=== PATIENT | female | born 1995 ===

== ENCOUNTER 2025-09-19 10:12 | Outpatient (AMB) | payer MEDICAID, SELFPAY ==
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
[2025-09-19 10:32] VITALS: BP 105/71; PULSE 79; RESP 16; TEMP 36.5; O2SAT 98; BMI 33.6
== END 2025-09-19 11:19 | disposition home or self-care (01) ==
LOC: HODSOBC 10:12
PROVIDERS: Supervising Provider Advanced Practice Midwife; Visit Provider Advanced Practice Midwife
DX: O09.891 Supervision of other high risk pregnancies, first trimester (principal); O99.211 Obesity complicating pregnancy, first trimester; E66.01 Morbid (severe) obesity due to excess calories; Z3A.13 13 weeks gestation of pregnancy; Z88.1 Allergy status to other antibiotic agents
CPT/HCPCS: 99214; G0463

== ENCOUNTER 2025-10-17 10:10 | Outpatient (AMB) | payer MEDICAID, SELFPAY ==
[2025-10-17 10:25] VITALS: BP 112/71; PULSE 88; RESP 16; TEMP 36.4; O2SAT 98; BMI 33.5
--- NOTE | 2025-10-17 10:25 | OBCLNT_ITS ---
Vital Signs 10/17/25 10:25 Height 1.63 m Height Method Stated Weight 89.018 kg Weight Measurement Method Standing Scale BMI 33.5 BP 112/71 Blood Pressure Source Automatic Cuff Blood Pressure Location Left Upper Arm Position Sitting Respiration 16 Pulse 88 Pulse Source Monitor Temp 97.6 F Temp Source Oral Pulse Oximetry (%) 98 Oxygen Delivery Method Room Air Allergies/Home Meds Allergies & Medications Allergies antibiotic Allergy (Uncoded 10/17/25 10:26) Hives Medication Reconciliation prenat.vits,everardo,[id number] 1 tab PO QDAY 04/02/23 [History Confirmed 10/17/25] Immunizations Immunizations Flu Vaccine in the Last 12 Months: Yes Date of most recent flu vaccination: 10/17/25 Flu Vaccine Exclusion Criteria: Already Received Care OB Visit Log OB Flowsheet Initial Weight: Not Recorded Date -?-?-?-?-?-?-?-?-?-?-?-?- EGA Weight BP Alb Glu CTX Pres Fundal ht FHR Mov Dilation Station Effacement Hx Notes Visit Note 09/19/25 -?-?-?-?-?-?-?-?-?-?-?-?- 13w 6d 88.904 kg 105/71 absent unknown 13 156 absent 30-year-old 6 para 4 for OBI. Last period June 14, 2025. Estimated due date March 21, 2026. Denies leaking, bleeding, cramps. Patient denies any second trimester discomforts. OB panel today w ith early 1 hour and hemoglobin A1c. I also did a CMP today. We did NIPT and carrier screen. Continue vitamins. Schedule an ultrasound at [facility] for anatomy scan. And discussed SAB precautions. Patient will return in 4 weeks OB check 10/17/25 -?-?-?-?-?-?-?-?-?-?-?-?- 17w 6d 89.018 kg 112/71 absent unknown 16 156 absent Patient did not do labs. She was away at work. Denies leaking, bleeding, contractions. Light movement NIPT, AFP, A1c, OB panel today patient has MFM appointment the first week in November. Discussed SAB precautions. Return in 4 weeks OB check [facility] Calculator Estimated Delivery Date Method Current WG Current Estimate 03/21/26 LMP (Certain) 17w 6d Notes Visit Date: 09/19/25 Last Updated by: Kathie Amaro CNM Okay30 yo nextg6 more thanp4. lmp 06/14/25. EDC: 03/21/26 Office Procedures OBC Clinic LOC & Office Proc's Nursing/Assessment Patient Status: Established Patient OB Clinic Nursing Assessment: Medication Reconciliation, Update PMH in EMR and Vital Signs OB Clinic Coordination of Care: Complex Care and Chronic Disease 1-5, Consent,records obtained, informed consent, Education Simp Pt/Fam, 1 Ins Authorization, Lab and Imaging orders, Results/Orders obtained and Staff clarify orders Special Needs: Heart tones Established Patient Charge Established Patient Point Assignment: 150 Established Patient Point Charge: EP Level 4 (120-155) Injection/Vaccine Admin SQ Im Injection: Yes Immunizations flu vac ts (6mos up)-PF 45 mcg(15mcg x3)/0.5 mL IM syringe Performing Provider: Kathie Amaro CNM Performing Location: [facility] Administered by: Marisa Osorio MA on 10/17/25 13:19 Dose Route Admin Location Dispensed Lot Number Expiration Date Pack age [facility] [place] [employer] 0.5 mL IM Left Deltoid 0.5 mL [id number] 12/17/24 47913-401-02 [id number] [employer] VIS Given Date VIS Provided VIS Publication Date 10/17/25 Single Vaccine 24 Eligibility Eligibility Date Funding Source Public Non-[facility] Assessment & Plan Diagnosis / Problem List (1) Obesity affecting in second trimester: Status: Acute Qualifiers: Obesity type affecting : severe obesity due to excess calories Qualified Code(s): O99.212 - Obesity complicating , second trimester; E66.01 - Morbid (severe) obesity due to excess calories Plan Keep appointment with MFM the first week and November. OB panel with NIPT, carrier screens, AFP, AMA 1C and today. SAB precautions and return in 4 weeks OB check Additional Plan Follow Up: 4 Weeks (obc)
== END 2025-10-17 10:59 | disposition home or self-care (01) ==
PROVIDERS: Supervising Provider Advanced Practice Midwife; Visit Provider Advanced Practice Midwife
DX: O09.892 Supervision of other high risk pregnancies, second trimester (principal); O99.212 Obesity complicating pregnancy, second trimester; Z3A.17 17 weeks gestation of pregnancy; Z23 Encounter for immunization
CPT/HCPCS: 90471; 90686; 96372; 99214; G0463; J9060

== ENCOUNTER 2025-11-15 10:29 | Outpatient (AMB) | payer MEDICAID, SELFPAY ==
[2025-11-15 10:59] VITALS: BP 106/73; PULSE 93; RESP 18; TEMP 36.6; O2SAT 98; BMI 33.0
--- NOTE | 2025-11-15 10:59 | OBCLNT_ITS ---
Vital Signs 11/15/25 10:59 Height 1.63 m Height Method Stated Weight 87.6 kg Weight Measurement Method Standing Scale BMI 33.0 BP 106/73 Blood Pressure Source Automatic Cuff Blood Pressure Location Left Upper Arm Position Sitting Respiration 18 Pulse 93 Pulse Source Monitor Temp 97.8 F Temp Source Oral Pulse Oximetry (%) 98 Oxygen Delivery Method Room Air Allergies/Home Meds Allergies & Medications Allergies antibiotic Allergy (Uncoded 11/15/25 11:00) Hives Medication Reconciliation prenat.vits,everardo,[id number] 1 tab PO QDAY 04/02/23 [History Confirmed 11/15/25] Immunizations Immunizations Flu Vaccine in the Last 12 Months: Yes Date of most recent flu vaccination: 10/17/25 Flu Vaccine Exclusion Criteria: Already Received Care OB Visit Log OB Flowsheet Initial Weight: Not Recorded Date -?-?-?-?-?-?-?-?-?-?-?-?- EGA Weight BP Alb Glu CTX Pres Fundal ht FHR Mov Dilation Station Effacement Hx Notes Visit Note 09/19/25 -?-?-?-?-?-?-?-?-?-?-?-?- 13w 6d 88.904 kg 105/71 absent unknown 13 156 absent 30-year-old 6 para 4 for OBI. Last period June 14, 2025. Estimated due date March 21, 2026. Denies leaking, bleeding, cramps. Patient denies any second trimester discomforts. OB panel today w ith early 1 hour and hemoglobin A1c. I also did a CMP today. We did NIPT and carrier screen. Continue vitamins. Schedule an ultrasound at [facility] for anatomy scan. And discussed SAB precautions. Patient will return in 4 weeks OB check 10/17/25 -?-?-?-?-?-?-?-?-?-?-?-?- 17w 6d 89.018 kg 112/71 absent unknown 16 156 absent Patient did not do labs. She was away at work. Denies leaking, bleeding, contractions. Light movement NIPT, AFP, A1c, OB panel today patient has MFM appointment the first week in November. Discussed SAB precautions. Return in 4 weeks OB check 11/15/25 -?-?-?-?-?-?-?-?-?-?-?-?- 22w 0d 87.6 kg 106/73 absent unknown 22 165 active Reports feels good movement. Denies leaking, bleeding, contractions Discussed NIPT. Patient has follow-up [facility] November 23. Discussed labor precautions. Return in 4 weeks OB to [facility] Calculator Estimated Delivery Date Method Current WG Current Estimate 03/21/26 LMP (Certain) 22w 0d Notes Visit Date: 11/15/25 Last Updated by: Kathie Amaro CNM NIPT-/girl, sma and CF-, B+,abs-,rpr;;nr,rub imm, hbsag-,hiv-,hc-,GC/CT-, , Visit Date: 09/19/25 Last Updated by: Kathie Amaro CNM Okay30 yo nextg6 more thanp4. lmp 06/14/25. EDC: 03/21/26 Office Procedures OBC Clinic LOC & Office Proc's Nursing/Assessment Patient Status: Established Patient OB Clinic Nursing Assessment: Medication Reconciliation, Update PMH in EMR and Vital Signs OB Clinic Coordination of Care: Complex Care and Chronic Disease 1-5, Consent,records obtained, informed consent, Education Simp Pt/Fam, 1 Ins Authorization, Lab and Imaging orders, Results/Orders obtained and Staff clarify orders Special Needs: Heart tones Established Patient Charge Established Patient Point Assignment: 150 Established Patient Point Charge: EP Level 4 (120-155) Assessment & Plan Diagnosis / Problem List (1) Obesity affecting in second trimester: Status: Acute Qualifiers: Obesity type affecting : severe obesity due to excess calories Qualified Code(s): O99.212 - Obesity complicating , second trimester; E66.01 - Morbid (severe) obesity due to excess calories (2) Encounter for supervision of high risk in second trimester, antepartum: Status: Acute Plan Discussed lab results. Follow-up [facility] November 23. Discussed labor precautions. Increase fluids and continue prenatals. And we discussed GDM diet return for Additional Plan Follow Up: 4 Weeks (obc)
== END 2025-11-15 11:34 | disposition home or self-care (01) ==
LOC: HODSOBC 10:29
PROVIDERS: Supervising Provider Advanced Practice Midwife; Visit Provider Advanced Practice Midwife
DX: O09.892 Supervision of other high risk pregnancies, second trimester (principal); O99.212 Obesity complicating pregnancy, second trimester; Z3A.22 22 weeks gestation of pregnancy; Z88.1 Allergy status to other antibiotic agents
CPT/HCPCS: 99214; G0463